=== PATIENT | male | born 1980 | race Two or more races ===

== ENCOUNTER → 2019-12-28 | Emergency (ER) | payer MEDICAID ==
[~2019-12-28] VITALS: Ht 175.3 cm; Wt 93.0 kg
[~2019-12-28] MED LIST: cefTRIAXone SOD 1,000 MG VL IM ONE
[2019-12-28 19:50] VITALS: BP 149/86
[2019-12-28 21:04] LABS: Urine Amorphous Crystal MOD /hpf (None Seen); Urine Bacteria NONE SEEN /hpf (None Seen); Urine Blood Negative /uL (Negative); Urine Specific Gravity 1.027 (1.001-1.035); Urine WBC 2 /hpf (0 - 3)
== END | disposition home or self-care (01) ==
LOC: ER 19:36
DX: N49.2 Inflammatory disorders of scrotum (principal); R59.1 Generalized enlarged lymph nodes
CPT/HCPCS: 76870; 81001; 96372; 99284; J0696

== ENCOUNTER 2020-02-07 22:16 | Emergency (ER) | payer MEDICAID ==
[~2020-02-07] VITALS: Ht 177.8 cm; Wt 93.0 kg
[2020-02-07 22:38] VITALS: BP 130/92
[2020-02-08] MEDS ORDERED: cefTRIAXone SOD 1,000 MG VL IM ONE (00:30)
== END 2020-02-08 00:44 | disposition home or self-care (01) ==
LOC: ER 22:17
DX: L02.411 Cutaneous abscess of right axilla (principal)
CPT/HCPCS: 96372; 99283; J0696

== ENCOUNTER 2020-05-18 16:55 | Emergency (ER) | payer MEDICAID ==
[~2020-05-18] VITALS: Ht 177.8 cm; Wt 95.3 kg
[2020-05-18 17:35] VITALS: BP 134/94
== END 2020-05-18 17:49 | disposition home or self-care (01) ==
LOC: ER 16:55
DX: J32.9 Chronic sinusitis, unspecified (principal); F12.10 Cannabis abuse, uncomplicated

== ENCOUNTER 2021-03-21 15:42 | Emergency (ER) | payer MEDICAID ==
[~2021-03-21] VITALS: Ht 177.8 cm; Wt 95.3 kg
[2021-03-21 19:38] VITALS: BP 141/106
== END 2021-03-21 19:39 | disposition home or self-care (01) ==
LOC: ER 15:44
DX: S83.91XA Sprain of unspecified site of right knee, initial encounter (principal); F12.10 Cannabis abuse, uncomplicated; W01.0XXA Fall on same level from slipping, tripping and stumbling without subsequent striking against object, initial encounter; Y93.55 Activity, bike riding; Y92.488 Other paved roadways as the place of occurrence of the external cause; Y99.8 Other external cause status
CPT/HCPCS: 73562

== ENCOUNTER 2022-02-26 08:06 | Emergency (ER) | payer MEDICAID ==
[~2022-02-26] VITALS: Ht 175.3 cm; Wt 95.3 kg
[2022-02-26 09:26] LABS: Basophils # (auto) 0 10 ^3/uL (0-0.2); Basophils % (auto) 0.5 % (0.0-2.0); Eosinophils # (auto) 0.2 10 ^3/uL (0-0.8); Eosinophils % (auto) 2.3 % (0.0-7.0); Hemoglobin 17.9 g/dL (13.5-17.5); Lymphocytes # (auto) 1.1 10 ^3/uL (0.4-5.4); Lymphocytes % (auto) 14.1 % (10.0-50.0); Mean Corpuscular Hemoglobin 30.2 pg (28.0-32.0); Mean Corpuscular Hgb Conc. 35.1 g/dL (32.0-36.0); Mean Corpuscular Volume 86.1 fL (80.0-100.0); Monocytes # (auto) 0.3 10 ^3/uL (0-1.3); Monocytes % (auto) 3.9 % (0.0-12.0); Neutrophils % (auto) 79.2 % (37.0-80.0); Nucleated Red Blood Cells % 0.1 %; Red Blood Cells 5.93 10^6/uL (4.5-5.90); Red Cell Distribution Width 13.9 % (11.8-14.3); White Blood Cell 7.6 10^3/uL (4.4-10.8)
[2022-02-26 09:40] LABS: Albumin 4.1 g/dL (3.4-5.0); Calcium 9.3 mg/dL (8.5-10.1); Magnesium 2.7 mg/dL (1.6-2.6); Potassium 5.1 mmol/L (3.5-5.1)
[2022-02-26 09:45] LABS: BUN/Creatinine Ratio 10.9; Bilirubin, Total 0.6 mg/dL (0.2-1.0); Total Protein 8.9 g/dL (6.4-8.2)
[2022-02-26 09:52] LABS: Urine Bacteria NONE SEEN /hpf (None Seen); Urine Blood Negative /uL (Negative); Urine Specific Gravity 1.017 (1.001-1.035); Urine WBC <1 /hpf (0 - 3)
[2022-02-26 10:00] VITALS: BP 135/94
[2022-02-26 10:00] LABS: Alcohol, Urine < 3.0 mg/dL (0-10); Amphetamine Screen, Urine NEGATIVE (NEGATIVE); Barbiturate Scree,Urine NEGATIVE (NEGATIVE); Benzodiazephine Screen, Urine NEGATIVE (NEGATIVE); Cannabinoid Screen, Urine POSITIVE (NEGATIVE); Cocaine Screen, Urine NEGATIVE (NEGATIVE); Phencyclidine Screen, Urine NEGATIVE (NEGATIVE)
[2022-02-26 10:06] LABS: Opiate Scree,Urine NEGATIVE (NEGATIVE)
[2022-02-26] MEDS ORDERED: SODIUM CHLORIDE 0.9% 1,000 ML IV ONE (11:15)
[2022-02-26] MEDS ORDERED: FUROSEMIDE 20 MG TAB PO ONE (12:45)
== END 2022-02-26 12:57 | disposition home or self-care (01) ==
LOC: ER 08:06
DX: R55 Syncope and collapse (principal); E87.5 Hyperkalemia; R42 Dizziness and giddiness; R51.9 Headache, unspecified
CPT/HCPCS: 36415; 70450; 72125; 80053; 80307; 80320; 81001; 83735; 84484; 85025; 93005; 96360; 99285; J7030

== ENCOUNTER 2022-03-26 08:49 | Inpatient (IN) | payer MEDICAID ==
[~2022-03-26] VITALS: Ht 177.8 cm; Wt 94.3 kg
[2022-03-26 10:43] LABS: Potassium 3.9 mmol/L (3.5-5.1)
[2022-03-26 10:45] LABS: Basophils # (auto) 0 10 ^3/uL (0-0.2); Basophils % (auto) 0.2 % (0.0-2.0); Eosinophils # (auto) 0 10 ^3/uL (0-0.8); Eosinophils % (auto) 0.2 % (0.0-7.0); Hematocrit 50.8 % (41.0-53.0); Hemoglobin 17.5 g/dL (13.5-17.5); Lymphocytes # (auto) 1.1 10 ^3/uL (0.4-5.4); Lymphocytes % (auto) 6.1 % (10.0-50.0); Mean Corpuscular Hemoglobin 29.7 pg (28.0-32.0); Mean Corpuscular Hgb Conc. 34.4 g/dL (32.0-36.0); Mean Corpuscular Volume 86.3 fL (80.0-100.0); Monocytes # (auto) 1.6 10 ^3/uL (0-1.3); Neutrophils # (auto) 14.7 10 ^3/uL (1.6-8.6); Neutrophils % (auto) 84.5 % (37.0-80.0); Red Blood Cells 5.88 10^6/uL (4.5-5.90); Red Cell Distribution Width 13.8 % (11.8-14.3); White Blood Cell 17.4 10^3/uL (4.4-10.8)
[2022-03-26 10:49] LABS: Albumin 3.8 g/dL (3.4-5.0); BUN/Creatinine Ratio 7.3; Bilirubin, Total 1.1 mg/dL (0.2-1.0); Calcium 9.2 mg/dL (8.5-10.1); Total Protein 8.9 g/dL (6.4-8.2)
[2022-03-26] MEDS ORDERED: SODIUM CHLORIDE 0.9% 500 ML IVB ONE (11:15)
[2022-03-26] MEDS ORDERED: HYDROmorphone HCL 2 MG/ML VL/or syr IV ONE ×2 (11:15→17:00)
[2022-03-26] MEDS ORDERED: METOCLOPRAMIDE HCL 5MG/ml INJ 2ml VIAL IV ONE (11:15)
[2022-03-26] MEDS ORDERED: SODIUM CHLORIDE 0.9% 1,000 ML IV ONE (11:15)
[2022-03-26 11:46] LABS: Magnesium 2.6 mg/dL (1.6-2.6)
[2022-03-26 11:56] LABS: INR 1.05 (0.9-1.15); Partial Thromboplastin Time 30.3 sec (23.6-33.0)
[2022-03-26] MEDS ORDERED: PIPERACILLIN-TAZO 4.5GM 100 ML IV ONE (12:00)
[2022-03-26] MEDS ORDERED: metroNIDAZOLE 500MG/100ML 100 ML IV ONE ×2 (12:00→13:00)
[2022-03-26] MEDS ORDERED: PIPERACILLIN-TAZOB 3.375GM 100 ML IV ONE (13:00)
[2022-03-26] MEDS ORDERED: D5W/SOD CHL 0.45%/KCL 20MEQ 1,000 ML IV ONE (13:00)
[2022-03-26] MEDS ORDERED: LIDOCAINE VISCOUS 2% 15ML UD MT ONE (14:00)
[2022-03-26] MEDS ORDERED: BENZOCAINE (DENTAL) 20 % SPRAY 60ML MT ONE (14:00)
[2022-03-26 16:14] LABS: Urine Bacteria NONE SEEN /hpf (None Seen); Urine Blood TRACE /uL (Negative); Urine Mucus FEW (None Seen); Urine Specific Gravity 1.022 (1.001-1.035); Urine WBC 1 /hpf (0 - 3)
[2022-03-26] MEDS ORDERED: levoFLOXacin 500MG 100 ML IV ONE ×2 (17:30→20:45)
[2022-03-26] MEDS ORDERED: MORPHINE SULFATE INJ 2 MG/ml SYRG IV PRN (17:30)
[2022-03-26] MEDS ORDERED: NITROGLYCERIN 0.4 MG SL TAB SL PRN (17:30)
[2022-03-26] MEDS ORDERED: PROMETHAZINE HCL 25 MG/ML 1ML IV PRN (17:30)
[2022-03-26] MEDS ORDERED: SODIUM CHLORIDE 0.9% 1,000 ML IV SCH (17:30)
[2022-03-26] MEDS ORDERED: CLINDAMYCIN 900MG IV 50 ML IV ONE (17:30)
[2022-03-26] MEDS ORDERED: ONDANSETRON HCL 4 MG/2 ML VIAL IV PRN (17:30)
[2022-03-26] MEDS: MORPHINE SULFATE INJ 2 MG/ml SYRG IV PRN (21:00)
[2022-03-26 23:38] VITALS: BP 144/89
[2022-03-27] MEDS: MORPHINE SULFATE INJ 2 MG/ml SYRG IV PRN ×5 (01:21→22:21)
[2022-03-27 05:00] VITALS: BP 144/92
[2022-03-27] MEDS: CLINDAMYCIN 600MG IV 50 ML IV SCH ×3 (06:08→22:18)
[2022-03-27 06:18] LABS: Basophils # (auto) 0 10 ^3/uL (0-0.2); Basophils % (auto) 0.3 % (0.0-2.0); Eosinophils # (auto) 0.1 10 ^3/uL (0-0.8); Eosinophils % (auto) 0.5 % (0.0-7.0); Hematocrit 46.1 % (41.0-53.0); Hemoglobin 16.5 g/dL (13.5-17.5); Lymphocytes # (auto) 0.8 10 ^3/uL (0.4-5.4); Lymphocytes % (auto) 5.4 % (10.0-50.0); Mean Corpuscular Hemoglobin 31.1 pg (28.0-32.0); Mean Corpuscular Hgb Conc. 35.9 g/dL (32.0-36.0); Mean Corpuscular Volume 86.6 fL (80.0-100.0); Monocytes # (auto) 1.3 10 ^3/uL (0-1.3); Monocytes % (auto) 8.6 % (0.0-12.0); Neutrophils # (auto) 12.7 10 ^3/uL (1.6-8.6); Neutrophils % (auto) 85.2 % (37.0-80.0); Nucleated Red Blood Cells % 0.2 %; Red Blood Cells 5.32 10^6/uL (4.5-5.90); Red Cell Distribution Width 13.9 % (11.8-14.3); White Blood Cell 14.9 10^3/uL (4.4-10.8)
[2022-03-27 06:28] LABS: Albumin 3.3 g/dL (3.4-5.0); BUN/Creatinine Ratio 8.8; Calcium 9.1 mg/dL (8.5-10.1); Potassium 3.8 mmol/L (3.5-5.1)
[2022-03-27 06:31] LABS: Bilirubin, Total 1.1 mg/dL (0.2-1.0); Total Protein 7.8 g/dL (6.4-8.2)
[2022-03-27 08:00] VITALS: BP 140/92
[2022-03-27] MEDS: FAMOTIDINE (10MG/ML) 2ML VL IV SCH (10:12)
[2022-03-27] MEDS: levoFLOXacin 500MG 100 ML IV SCH (10:13)
[2022-03-27 12:00] VITALS: BP 144/99
[2022-03-27] MEDS ORDERED: hydrALAZINE HCL 20 MG/ML VL IV PRN (12:45)
[2022-03-27] MEDS ORDERED: TPN PER PHARMACY 0 ML IV SCH (12:45)
[2022-03-27] MEDS: SODIUM CHLORIDE 0.9% 1,000 ML IV SCH (12:45)
[2022-03-27] MEDS ORDERED: ALBUTEROL SULF 2.5 MG/0.5ML(0.5%) NEB SOLN NEB PRN (12:45)
[2022-03-27] MEDS ORDERED: IPRATROPIUM BROM 0.5 MG/2.5ML INH SOL NEB PRN (12:45)
[2022-03-27] MEDS ORDERED: DEXTROSE (50%) 50ML SYRG IV SCH (13:00)
[2022-03-27 13:09] LABS: Magnesium 2.4 mg/dL (1.6-2.6); Phosphorus 1.9 mg/dL (2.5-4.90)
[2022-03-27 16:00] VITALS: BP 153/91
[2022-03-27] MEDS: InsuLIN REG 1unit/0.01ml Soln (100units/ml) SC SCH (18:00)
[2022-03-27] MEDS: ACCU-CHEK COMFORT CURVE STRIP VI SCH (18:00)
[2022-03-27] MEDS ORDERED: PPN PER PHARMACY IV NR ×6 (20:00)
[2022-03-27 22:15] VITALS: BP 132/71
[2022-03-28] MEDS: ACCU-CHEK COMFORT CURVE STRIP VI SCH ×5 (00:27→23:55)
[2022-03-28] MEDS: SODIUM CHLORIDE 0.9% 1,000 ML IV SCH ×3 (04:22→22:15)
[2022-03-28] MEDS: MORPHINE SULFATE INJ 2 MG/ml SYRG IV PRN ×2 (04:33→22:36)
[2022-03-28 04:49] LABS: Basophils # (auto) 0 10 ^3/uL (0-0.2); Basophils % (auto) 0.4 % (0.0-2.0); Eosinophils # (auto) 0.2 10 ^3/uL (0-0.8); Eosinophils % (auto) 2.1 % (0.0-7.0); Hematocrit 46.2 % (41.0-53.0); Hemoglobin 16.4 g/dL (13.5-17.5); Lymphocytes # (auto) 0.7 10 ^3/uL (0.4-5.4); Mean Corpuscular Hemoglobin 30.5 pg (28.0-32.0); Mean Corpuscular Hgb Conc. 35.4 g/dL (32.0-36.0); Mean Corpuscular Volume 86.3 fL (80.0-100.0); Monocytes # (auto) 0.9 10 ^3/uL (0-1.3); Monocytes % (auto) 9.4 % (0.0-12.0); Neutrophils # (auto) 8.2 10 ^3/uL (1.6-8.6); Neutrophils % (auto) 81.1 % (37.0-80.0); Nucleated Red Blood Cells % 0.1 %; Red Blood Cells 5.36 10^6/uL (4.5-5.90); Red Cell Distribution Width 13.5 % (11.8-14.3); White Blood Cell 10.1 10^3/uL (4.4-10.8)
[2022-03-28 05:01] LABS: Calcium 9.2 mg/dL (8.5-10.1); Magnesium 2.3 mg/dL (1.6-2.6); Potassium 3.6 mmol/L (3.5-5.1)
[2022-03-28 05:05] LABS: BUN/Creatinine Ratio 16.2; Bilirubin, Total 0.9 mg/dL (0.2-1.0); Phosphorus 2.6 mg/dL (2.5-4.90); Total Protein 7.7 g/dL (6.4-8.2)
[2022-03-28 05:31] VITALS: BP 148/90
[2022-03-28] MEDS: InsuLIN REG 1unit/0.01ml Soln (100units/ml) SC SCH ×5 (06:00→23:55)
[2022-03-28] MEDS: CLINDAMYCIN 600MG IV 50 ML IV SCH (06:25)
[2022-03-28 08:00] VITALS: BP 137/93
[2022-03-28] MEDS: levoFLOXacin 500MG 100 ML IV SCH (09:38)
[2022-03-28] MEDS: FAMOTIDINE (10MG/ML) 2ML VL IV SCH (09:39)
[2022-03-28 12:00] VITALS: BP 127/82
[2022-03-28] MEDS ORDERED: OMNIPAQUE ORAL SOLN 500ml 12mg/ml PO ONE (13:31)
[2022-03-28] MEDS: metroNIDAZOLE 500MG/100ML 100 ML IV SCH ×2 (14:00→22:15)
[2022-03-28] MEDS ORDERED: LIDOCAINE 1% (LOCAL ANESTH.) PF 5ml SDV ID ONE (15:45)
[2022-03-28 17:13] VITALS: BP 131/88
[2022-03-28] MEDS ORDERED: IOHEXOL 300 MG/ML 100ML BOTTLE IJ ONE (17:43)
[2022-03-28] MEDS ORDERED: PPN PER PHARMACY IV NR ×7 (20:00)
[2022-03-28] MEDS: SODIUM CHLOR 0.9% PF (SALINE LOCK) 10ML VIAL/SYR IV SCH (21:11)
[2022-03-28 22:00] VITALS: BP 123/77
[2022-03-29 05:00] VITALS: BP 121/71
[2022-03-29 05:50] LABS: Basophils # (auto) 0 10 ^3/uL (0-0.2); Basophils % (auto) 0.3 % (0.0-2.0); Eosinophils # (auto) 0.3 10 ^3/uL (0-0.8); Eosinophils % (auto) 2.6 % (0.0-7.0); Hematocrit 43.5 % (41.0-53.0); Hemoglobin 15.4 g/dL (13.5-17.5); Lymphocytes # (auto) 0.9 10 ^3/uL (0.4-5.4); Lymphocytes % (auto) 8.9 % (10.0-50.0); Mean Corpuscular Hemoglobin 30.8 pg (28.0-32.0); Mean Corpuscular Hgb Conc. 35.4 g/dL (32.0-36.0); Mean Corpuscular Volume 86.9 fL (80.0-100.0); Monocytes % (auto) 10.1 % (0.0-12.0); Neutrophils # (auto) 7.5 10 ^3/uL (1.6-8.6); Neutrophils % (auto) 78.1 % (37.0-80.0); Red Blood Cells 5.01 10^6/uL (4.5-5.90); Red Cell Distribution Width 13.3 % (11.8-14.3); White Blood Cell 9.6 10^3/uL (4.4-10.8)
[2022-03-29 06:00] LABS: Potassium 3.3 mmol/L (3.5-5.1)
[2022-03-29] MEDS: InsuLIN REG 1unit/0.01ml Soln (100units/ml) SC SCH ×3 (06:00→17:41)
[2022-03-29 06:05] LABS: Albumin 2.8 g/dL (3.4-5.0); BUN/Creatinine Ratio 18.9; Bilirubin, Total 0.5 mg/dL (0.2-1.0); Calcium 8.7 mg/dL (8.5-10.1); Magnesium 2.4 mg/dL (1.6-2.6); Phosphorus 3.1 mg/dL (2.5-4.90); Total Protein 7.5 g/dL (6.4-8.2)
[2022-03-29] MEDS: ACCU-CHEK COMFORT CURVE STRIP VI SCH ×3 (06:36→17:41)
[2022-03-29] MEDS: metroNIDAZOLE 500MG/100ML 100 ML IV SCH ×3 (06:36→22:36)
[2022-03-29 09:00] VITALS: BP 117/68
[2022-03-29] MEDS ORDERED: POTASSIUM CHL 20MEQ/100ML 100 ML IV ONE (10:00)
[2022-03-29] MEDS: FAMOTIDINE (10MG/ML) 2ML VL IV SCH (10:03)
[2022-03-29] MEDS: SODIUM CHLOR 0.9% PF (SALINE LOCK) 10ML VIAL/SYR IV SCH ×2 (10:03→22:36)
[2022-03-29] MEDS: levoFLOXacin 500MG 100 ML IV SCH (10:03)
[2022-03-29 13:00] VITALS: BP 112/77
[2022-03-29] MEDS: SODIUM CHLORIDE 0.9% 1,000 ML IV SCH (14:00)
[2022-03-29 17:00] VITALS: BP 110/72
[2022-03-29] MEDS ORDERED: TPN PER PHARMACY IV NR ×10 (20:00)
[2022-03-29 22:00] VITALS: BP 134/86
[2022-03-29] MEDS: MORPHINE SULFATE INJ 2 MG/ml SYRG IV PRN (22:37)
[2022-03-30] MEDS: ACCU-CHEK COMFORT CURVE STRIP VI SCH ×4 (00:27→18:05)
[2022-03-30] MEDS: SODIUM CHLORIDE 0.9% 1,000 ML IV SCH ×2 (02:00→12:20)
[2022-03-30 05:00] VITALS: BP 124/80
[2022-03-30] MEDS: metroNIDAZOLE 500MG/100ML 100 ML IV SCH ×3 (05:28→21:47)
[2022-03-30] MEDS: InsuLIN REG 1unit/0.01ml Soln (100units/ml) SC SCH ×4 (05:29→18:00)
[2022-03-30 09:00] VITALS: BP 130/88
[2022-03-30 09:25] LABS: Potassium 3.8 mmol/L (3.5-5.1)
[2022-03-30 09:31] LABS: Albumin 2.7 g/dL (3.4-5.0); BUN/Creatinine Ratio 15.6; Bilirubin, Total 0.5 mg/dL (0.2-1.0); Calcium 8.6 mg/dL (8.5-10.1); Magnesium 2.2 mg/dL (1.6-2.6); Phosphorus 3.1 mg/dL (2.5-4.90); Total Protein 7.1 g/dL (6.4-8.2)
[2022-03-30] MEDS: SODIUM CHLOR 0.9% PF (SALINE LOCK) 10ML VIAL/SYR IV SCH ×2 (09:47→21:48)
[2022-03-30] MEDS: levoFLOXacin 500MG 100 ML IV SCH (09:47)
[2022-03-30 13:00] VITALS: BP 136/86
[2022-03-30 17:00] VITALS: BP 116/68
[2022-03-30] MEDS ORDERED: TPN PER PHARMACY IV NR ×10 (20:00)
[2022-03-30] MEDS: LORazepam 2MG/ML-1ML VIAL IV PRN (21:47)
[2022-03-30 22:00] VITALS: BP 135/94
[2022-03-30 23:49] VITALS: BP 135/94
[2022-03-31 05:00] VITALS: BP 125/81
[2022-03-31] MEDS: metroNIDAZOLE 500MG/100ML 100 ML IV SCH ×3 (05:52→22:41)
[2022-03-31] MEDS: InsuLIN REG 1unit/0.01ml Soln (100units/ml) SC SCH ×5 (05:53→23:23)
[2022-03-31] MEDS: ACCU-CHEK COMFORT CURVE STRIP VI SCH ×5 (05:54→23:24)
[2022-03-31 09:00] VITALS: BP 122/76
[2022-03-31 09:44] LABS: Calcium 8.7 mg/dL (8.5-10.1); Magnesium 2.7 mg/dL (1.6-2.6); Potassium 3.9 mmol/L (3.5-5.1)
[2022-03-31 09:48] LABS: BUN/Creatinine Ratio 11.1; Bilirubin, Total 0.3 mg/dL (0.2-1.0); Phosphorus 2.8 mg/dL (2.5-4.90); Total Protein 7.5 g/dL (6.4-8.2)
[2022-03-31] MEDS: SODIUM CHLOR 0.9% PF (SALINE LOCK) 10ML VIAL/SYR IV SCH ×2 (10:00→22:29)
[2022-03-31] MEDS: levoFLOXacin 500MG 100 ML IV SCH (10:31)
[2022-03-31] MEDS: SODIUM CHLORIDE 0.9% 1,000 ML IV SCH (10:32)
[2022-03-31 13:00] VITALS: BP 123/83
[2022-03-31 17:04] VITALS: BP 125/79
[2022-03-31] MEDS ORDERED: TPN PER PHARMACY IV NR ×9 (20:00)
[2022-03-31] MEDS: LORazepam 2MG/ML-1ML VIAL IV PRN (22:42)
[2022-03-31 22:57] VITALS: BP 130/85
[2022-04-01] MEDS: SODIUM CHLORIDE 0.9% 1,000 ML IV SCH ×2 (04:00→21:50)
[2022-04-01 05:34] VITALS: BP 122/80
[2022-04-01 05:59] LABS: Basophils # (auto) 0 10 ^3/uL (0-0.2); Basophils % (auto) 0.4 % (0.0-2.0); Eosinophils # (auto) 0.5 10 ^3/uL (0-0.8); Eosinophils % (auto) 4.6 % (0.0-7.0); Hemoglobin 16.4 g/dL (13.5-17.5); Lymphocytes # (auto) 1.1 10 ^3/uL (0.4-5.4); Mean Corpuscular Hemoglobin 29.4 pg (28.0-32.0); Mean Corpuscular Hgb Conc. 34.8 g/dL (32.0-36.0); Mean Corpuscular Volume 84.3 fL (80.0-100.0); Monocytes # (auto) 0.8 10 ^3/uL (0-1.3); Monocytes % (auto) 7.4 % (0.0-12.0); Neutrophils # (auto) 8.6 10 ^3/uL (1.6-8.6); Neutrophils % (auto) 77.6 % (37.0-80.0); Nucleated Red Blood Cells % 0.2 %; Red Blood Cells 5.57 10^6/uL (4.5-5.90); Red Cell Distribution Width 13.4 % (11.8-14.3)
[2022-04-01] MEDS: InsuLIN REG 1unit/0.01ml Soln (100units/ml) SC SCH (06:00)
[2022-04-01] MEDS: ACCU-CHEK COMFORT CURVE STRIP VI SCH (06:00)
[2022-04-01] MEDS: metroNIDAZOLE 500MG/100ML 100 ML IV SCH ×3 (06:05→22:06)
[2022-04-01 06:16] LABS: Albumin 3.1 g/dL (3.4-5.0); Calcium 8.7 mg/dL (8.5-10.1); Potassium 3.6 mmol/L (3.5-5.1)
[2022-04-01 06:20] LABS: BUN/Creatinine Ratio 13.5; Bilirubin, Total 0.3 mg/dL (0.2-1.0); Magnesium 2.4 mg/dL (1.6-2.6); Phosphorus 2.8 mg/dL (2.5-4.90); Total Protein 7.4 g/dL (6.4-8.2)
[2022-04-01 08:52] VITALS: BP 123/83
[2022-04-01] MEDS: SODIUM CHLOR 0.9% PF (SALINE LOCK) 10ML VIAL/SYR IV SCH ×3 (09:29→22:06)
[2022-04-01] MEDS: levoFLOXacin 500MG 100 ML IV SCH (09:29)
[2022-04-01 13:23] VITALS: BP 122/79
[2022-04-01 16:57] VITALS: BP 115/67
[2022-04-01 22:00] VITALS: BP 119/76
[2022-04-02] MEDS: SODIUM CHLORIDE 0.9% 1,000 ML IV SCH
[2022-04-02 05:00] VITALS: BP 122/77
[2022-04-02] MEDS: metroNIDAZOLE 500MG/100ML 100 ML IV SCH ×2 (05:13→14:01)
[2022-04-02 05:57] LABS: Basophils # (auto) 0.1 10 ^3/uL (0-0.2); Eosinophils # (auto) 0.4 10 ^3/uL (0-0.8); Eosinophils % (auto) 4.2 % (0.0-7.0); Lymphocytes # (auto) 1.4 10 ^3/uL (0.4-5.4); Monocytes # (auto) 0.9 10 ^3/uL (0-1.3); Neutrophils # (auto) 7.9 10 ^3/uL (1.6-8.6); White Blood Cell 10.7 10^3/uL (4.4-10.8)
[2022-04-02 06:09] LABS: Calcium 8.9 mg/dL (8.5-10.1)
[2022-04-02 06:11] LABS: BUN/Creatinine Ratio 15.6
[2022-04-02 07:18] LABS: Basophils % (auto) 0.6 % (0.0-2.0); Hematocrit 46.8 % (41.0-53.0); Hemoglobin 16.1 g/dL (13.5-17.5); Lymphocytes % (auto) 13.4 % (10.0-50.0); Mean Corpuscular Hemoglobin 29.6 pg (28.0-32.0); Mean Corpuscular Hgb Conc. 34.5 g/dL (32.0-36.0); Mean Corpuscular Volume 85.9 fL (80.0-100.0); Monocytes % (auto) 8.3 % (0.0-12.0); Neutrophils % (auto) 73.5 % (37.0-80.0); Nucleated Red Blood Cells % 0.2 %; Red Blood Cells 5.45 10^6/uL (4.5-5.90); Red Cell Distribution Width 13.2 % (11.8-14.3)
[2022-04-02 09:00] VITALS: BP 121/75
[2022-04-02] MEDS: levoFLOXacin 500MG 100 ML IV SCH (09:54)
[2022-04-02] MEDS: SODIUM CHLOR 0.9% PF (SALINE LOCK) 10ML VIAL/SYR IV SCH (12:11)
[2022-04-02 13:25] VITALS: BP 120/80
[2022-04-02] MEDS ORDERED: METR500T PO (16:16)
[2022-04-02] MEDS ORDERED: LEVO500T31 PO (16:16)
[2022-04-02 17:13] VITALS: BP 136/89
== END 2022-04-02 16:46 | disposition home or self-care (01) | DRG 720 ==
LOC: ER 08:49 → TELE 17:20 → TELE-EAST 18:50
PROVIDERS: ADMIT Internal Medicine; ATTEND Internal Medicine
PROC: 3E0436Z Introduction of Nutritional Substance into Central Vein, Percutaneous Approach (ICD-10-PCS; principal; 2022-03-27)
DX: A41.9 Sepsis, unspecified organism (principal); K57.20 Diverticulitis of large intestine with perforation and abscess without bleeding; E66.9 Obesity, unspecified; J45.909 Unspecified asthma, uncomplicated; K40.20 Bilateral inguinal hernia, without obstruction or gangrene, not specified as recurrent; K59.01 Slow transit constipation; E87.6 Hypokalemia; F17.210 Nicotine dependence, cigarettes, uncomplicated; Z20.822 Contact with and (suspected) exposure to COVID-19; Z83.3 Family history of diabetes mellitus; Z93.3 Colostomy status; Z71.6 Tobacco abuse counseling; Z68.30 Body mass index [BMI] 30.0-30.9, adult
CPT/HCPCS: 36415; 36569; 71045; 71046; 74176; 74177; 80048; 80053; 80061; 81001; 82962; 83036; 83605; 83690; 83735; 84100; 84443; 85025; 85610; 85730; 87040; 93005; 96361; 96374; 96375; G0378; J1956; J2405; J2543; J3480; J3490

== ENCOUNTER → 2023-04-09 | Emergency (ER) | payer MEDICAID ==
[~2023-04-09] MED LIST changes: +LEVO500T31 PO; +METR500T PO; -cefTRIAXone SOD 1,000 MG VL IM ONE
== END | disposition left against medical advice (07) ==
LOC: ER 20:39
DX: R10.9 Unspecified abdominal pain (principal); R19.7 Diarrhea, unspecified; Z53.21 Procedure and treatment not carried out due to patient leaving prior to being seen by health care provider

== ENCOUNTER 2025-01-13 13:25 | Inpatient (IN) | payer MEDICAID ==
[~2025-01-13] VITALS: Ht 175.3 cm; Wt 91.8 kg
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
--- NOTE | 2025-01-13 14:10 | DVH ---
CT ABDOMEN AND PELVIS WITHOUT CONTRAST CLINICAL HISTORY: pain TECHNIQUE: Multiple contiguous axial images of the abdomen and pelvis without intravenous contrast. T he images were reformatted degenerate coronal and sagittal reconstructions. All CT scans at this medical facility are performed using dose modulation techniques as appropriate t o a performed exam including the following:Automated exposure control was utilized; adjustment of the MA and/or KV according to patient size; and use of iterative reconstruction technique. Radiation Dose Information: CT Dose: CTDI volume is 11 mGy. Dose-length product is 700 mGy*cm Comparison: 03/2022 FINDINGS: Evaluation of the abdomen and pelvis is limited without intravenous contrast. There is fatty infiltration of the liver. The gallbladder, pancreas, kidneys, adrenal glands, and spleen appear within normal limits. There is no gross evidence of abdominal lymphadenopathy. There is no free fluid or free air. The stomach grossly appears unremarkable. The small and large bowel loops demonstrate normal caliber and distribution. There are multiple diverticula in the sigmoid colon. The sigmoid colon demonstrate s irregular wall thickening with moderate surrounding fat stranding compatible with acute diverticuli tis. There is no evidence of pericolonic abscess. There is no significant amount of free air. A norm al appearing appendix is seen in the right lower quadrant abdomen. The abdominal aorta and IVC appear within normal limits. The bladder appears unremarkable for the degree of distention. Pelvic organ appears within normal ramírez its. There is no gross evidence of a pelvic mass. There is no free fluid collection. Lung bases are clear. There is no acute osseous abnormality. IMPRESSION: 1. Findings consistent with acute sigmoid diverticulitis. There is no evidence of pericolonic absces s or significant amount of free air. 2. Hepatic steatosis. HS:Y
[2025-01-13 14:13] LABS: Basophils # (auto) 0 10 ^3/uL (0-0.2); Basophils % (auto) 0.4 % (0.0-2.0); Eosinophils # (auto) 0.2 10 ^3/uL (0-0.8); Eosinophils % (auto) 1.8 % (0.0-7.0); Hemoglobin 16.5 g/dL (13.5-17.5); Lymphocytes # (auto) 1.2 10 ^3/uL (0.4-5.4); Lymphocytes % (auto) 10.1 % (10.0-50.0); Mean Corpuscular Hemoglobin 30.9 pg (28.0-32.0); Mean Corpuscular Hgb Conc. 35.8 g/dL (32.0-36.0); Mean Corpuscular Volume 86.2 fL (80.0-100.0); Monocytes # (auto) 0.9 10 ^3/uL (0-1.3); Monocytes % (auto) 7.5 % (0.0-12.0); Neutrophils # (auto) 9.4 10 ^3/uL (1.6-8.6); Neutrophils % (auto) 80.2 % (37.0-80.0); Platelet Count (auto) 200 10^3/uL (140-450); Red Blood Cells 5.34 10^6/uL (4.5-5.90); Red Cell Distribution Width 14.2 % (11.8-14.3); White Blood Cell 11.7 10^3/uL (4.4-10.8)
[2025-01-13 14:30] LABS: Alanine Aminotransferase 27 U/L (7-40); Albumin 4.5 g/dL (3.2-4.8); Alkaline Phosphatase 159 U/L (46-116); Anion Gap 8 (5-15); Aspartate Aminotransferase 18 U/L (13-40); BUN/Creatinine Ratio 11.6 (10.0-20.0); Bilirubin, Total 0.9 mg/dL (0.2-1.0); Blood Urea Nitrogen 11 mg/dL (9-23); Calcium 9.7 mg/dL (8.7-10.4); Carbon Dioxide 25 mmol/L (20-31); Chloride 107 mmol/L (98-107); Glucose 86 mg/dL (74-106); Potassium 3.8 mmol/L (3.5-5.1); Sodium 140 mmol/L (136-145); Total Protein 7.3 g/dL (5.7-8.2)
[2025-01-13 15:56] LABS: Urine Bacteria None Seen /hpf (None Seen)
[2025-01-13 16:21] LABS: Urine Blood Negative /uL (Negative); Urine Clarity Clear (Clear); Urine Color Light-Yellow (Yellow); Urine Mucus FEW (None Seen); Urine Protein, UAD Negative (Negative); Urine Specific Gravity 1.023 (1.001-1.035); Urine Squamous Epithelial Cell None Seen /hpf (<5); Urine Urobilinogen Normal (Negative); Urine WBC < 1 /HPF (0-3); Urine pH 7.5 (5.0-9.0)
[2025-01-13] MEDS: metroNIDAZOLE 500MG/100ML 100 ML IV ONE (18:15)
[2025-01-13] MEDS: MORPHINE SULFATE 4 MG/ML SYR/VIAL IV ONE (20:43)
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
[2025-01-13 23:05] VITALS: BP 150/91; PULSE 89; RESP 18; TEMP 98.4; O2SAT 97
[2025-01-13] MEDS: cefTRIAXone 1GM/50ML D5W 50 ML IV ONE (23:19)
[2025-01-13] MEDS: metroNIDAZOLE 500MG/100ML 100 ML IV SCH (23:49)
[2025-01-14] MEDS: D5W/SOD CHLO 0.9% 1,000 ML IV ONE (00:47)
[2025-01-14] MEDS: ACETAMINOPHEN 325 MG TAB PO PRN (03:38)
[2025-01-14 05:47] LABS: Basophils # (auto) 0 10 ^3/uL (0-0.2); Basophils % (auto) 0.3 % (0.0-2.0); Eosinophils # (auto) 0.1 10 ^3/uL (0-0.8); Eosinophils % (auto) 0.8 % (0.0-7.0); Hematocrit 44.5 % (41.0-53.0); Hemoglobin 15.7 g/dL (13.5-17.5); Lymphocytes # (auto) 0.6 10 ^3/uL (0.4-5.4); Lymphocytes % (auto) 8.1 % (10.0-50.0); Mean Corpuscular Hemoglobin 30.1 pg (28.0-32.0); Mean Corpuscular Hgb Conc. 35.4 g/dL (32.0-36.0); Monocytes # (auto) 0.6 10 ^3/uL (0-1.3); Monocytes % (auto) 8.3 % (0.0-12.0); Neutrophils # (auto) 6.3 10 ^3/uL (1.6-8.6); Neutrophils % (auto) 82.5 % (37.0-80.0); Nucleated Red Blood Cells % 0.1 %; Platelet Count (auto) 160 10^3/uL (140-450); Red Blood Cells 5.24 10^6/uL (4.5-5.90); Red Cell Distribution Width 14.1 % (11.8-14.3); White Blood Cell 7.6 10^3/uL (4.4-10.8)
[2025-01-14 05:53] LABS: Alanine Aminotransferase 20 U/L (7-40); Anion Gap 8 (5-15); Aspartate Aminotransferase 15 U/L (13-40); BUN/Creatinine Ratio 11.4 (10.0-20.0); Blood Urea Nitrogen 10 mg/dL (9-23); Calcium 9.2 mg/dL (8.7-10.4); Carbon Dioxide 24 mmol/L (20-31); Chloride 105 mmol/L (98-107); Potassium 3.6 mmol/L (3.5-5.1); Sodium 137 mmol/L (136-145); Total Protein 6.9 g/dL (5.7-8.2)
[2025-01-14 05:54] LABS: Albumin 4.2 g/dL (3.2-4.8); Cholesterol 189 mg/dL (< 200); HDL Cholesterol 47 mg/dL (40-59)
[2025-01-14 05:57] LABS: Alkaline Phosphatase 138 U/L (46-116); Glucose 113 mg/dL (74-106); LDL Cholesterol 126 mg/dL (< 100); Triglycerides 162 mg/dL (< 150)
[2025-01-14 06:18] LABS: Lipase 83 U/L (12-53)
[2025-01-14] MEDS ORDERED: ONDANSETRON HCL 4 MG/2 ML VIAL IV PRN (08:00)
[2025-01-14 09:00] VITALS: BP 133/100; PULSE 68; RESP 18; TEMP 98; O2SAT 98
[2025-01-14] MEDS: cefTRIAXone 1GM/50ML D5W 50 ML IV SCH (09:59)
[2025-01-14] MEDS: KETOROLAC TROMETH 30 MG/ML 1ML VIAL IV ONE (10:08)
[2025-01-14] MEDS: PANTOPRAZOLE 40 MG/10 ML VIAL INJ IV SCH (10:16)
--- NOTE | 2025-01-14 10:33 | DVHPNRES ---
Progress Note Date Seen: Jan 14, 2025 Resident Creating Document: LENNIE BOLTON RESIDENT Medical Necessity Reason Pt with a Central, PICC or Fol: No Subjective Review of Systems Patient is a 44-year-old male with past medical history of hypertension and dyslipidemia, who comes in due to abdominal pain. According to the patient, this morning he woke up with an abdominal pain that was localized to the lower abdomen, patient describes the pain as intermittent and sharp in nature, 5/10. Worsens with bending over and improves with lying down. Patient notes he had similar pain 2 years ago and he was diagnosed with acute sigmoid diverticulitis with microperforation. Denies any associated symptoms. Patient's PCP is Dr. Ibarra. This is patient's second episode of diverticulitis. Patient was seen and examined on the bedside. He is alert oriented x3. complains of diffuse abdominal pain and nausea. no other active complaint Constitutional: No: Fever, Chills, Sweats, Weakness, Malaise, Other Eyes: No: Pain, Vision change, Conjunctivae inflammation, Eyelid inflammation, Other, Redness ENT: No: Ear pain, Ear discharge, Nose pain, Nose discharge, Nose congestion, Mouth pain, Mouth swelling, Throat pain, Throat swelling, Other Respiratory: Shortness of breath, improving No: Cough, Dry,Wheezing, Hemoptysis, Pleuritic Pain, Sputum, Wheezing, Other Cardiovascular: No: Chest Pain, Palpitations, Orthopnea, Paroxysmal Noc. Dyspnea, Edema, Lt Headedness, Other Gastrointestinal: Nausea, Vomiting, Abdominal Pain, No Diarrhea, Constipation, Melena, Hematochezia, Other Musculoskeletal: No: other, neck pain, shoulder pain, arm pain, back pain, hand pain, leg pain, foot pain Neurological:; No: Weakness, Numbness, Incoordination, Change in speech, Confusion, Seizures Objective vital signs Vital Sign Date Time Temp Pulse Resp B/P (MAP) Pulse Ox O2 Delivery O2 Flow Rate FiO2 01/14/25 09:00 98.0 68 18 133/100 (111) 98 98.0 01/13/25 23:05 Room Air* 0 21 Total Intake and Output 01/13/25 01/13/25 01/14/25 15:00 23:00 07:00 Intake Total 150 ml Balance 150 ml medications Current Medications Medications Dose Ordered Sig/Apolinar Route Start Time Stop Time Status Last Admin Dose Admin Ceftriaxone Sodium 50 ml @ 100 mls/hr DAILY@09 IV 01/14/25 09:00 01/14/25 09:59 100 MLS/HR Metronidazole 100 ml @ 100 mls/hr Q8HR IV 01/13/25 22:00 01/14/25 06:14 100 MLS/HR Acetaminophen 650 mg Q6HP PRN PO 01/14/25 03:30 01/14/25 03:38 650 MG Pantoprazole Sodium 40 mg DAILY IV 01/14/25 10:00 01/14/25 10:16 40 MG Lactated Ringer's 1,000 ml @ 125 mls/hr Q8H IV 01/14/25 08:00 Ondansetron HCl 4 mg Q8HPRN PRN IV 01/14/25 08:00 Examination Physical examination: General Appearance: Alert, Oriented X3, Cooperative, No acute distress HEENT: Atraumatic, PERRLA, EOMI, Mucous membrane moist/pink Respiratory: Clear to auscultation, Normal air movement Cardiovascular: Regular rate, Normal S1, Normal S2, No murmurs, no chest wall tenderness Abdominal: Normal bowel sounds, Soft, No tenderness, No hepatospenomegaly, No masses Extremities: No clubbing, No cyanosis, No edema, Normal pulses, No tenderness/swelling Skin: No rashes, No breakdown, No significant lesion Neuro: Normal gait, Normal speech, Strength at 5/5 X4 ext, Normal tone, Sensation intact, Cranial nerves 3-12 NL, Reflexes 2+ Psych/Mental Status: Mental status NL, Mood NL laboratory and microbiology Laboratory Tests 01/14/25 05:07 Test 01/14/25 05:07 Range/Units Serum Glucose 113 H 74-106 mg/dL Labs and/or images reviewed: Labs reviewed by me, Image(s) reviewed by me Problem List/Assessment/Plan Problem List/Assessment/Plan Assessment and plan: # Intractable abdominal pain likely due to acute sigmoid diverticulitis # SIRS due to above # Possible acute pancreatitis # Recurrent acute sigmoid diverticulitis - CT abdomen pelvis without contrast demonstrated acute sigmoid diverticulitis, there is no evidence of pericolonic abscess or significant amount of free air and hepatic steatosis - Lipase is 83 - NPO - IV Lactated Ringer's at 125 mL/hours - IV Toradol 15 mg q.6 PRN - IV ondansetron 4 mg Q 8 p.r.n. - IV ceftriaxone 1 g daily and IV metronidazole 500 mg t.i.d. # Uncontrolled hypertension # Dyslipidemia # Grade 1 obesity, BMI 31.4 kg per m2 - Losartan 25 mg p.o. daily - Counseled patient regarding healthy diet, avoid cheese, fatty food, lifestyle modification and moderate intensity physical exercise at least 35 minutes, 5 times in a week # PUD prophylaxis - Protonix 40 mg IV daily # DVT prophylaxis - Not recommended as patient is mobile Goal of care discussed with the patient for more than 20 minutes full code Plan discussed with Dr. Paz Plan discussed with: Patient, Other My Orders My Orders Orders - LENNIE BOLTON Procedure Category Date Status Time Lactated Ringer's PHA 01/14/25 In Process 08:00 Ondansetron Hcl PHA 01/14/25 In Process (Zofran) 08:00 Drug Screen LAB 01/14/25 Logged 10:30 Blood Alcohol LAB 01/14/25 Logged 10:30 Date of Service: Jan 14, 2025 Billing Provider: SAL PAZ MD Common Visit Codes: [id number] INP/OBS CARE(HIGH) LENNIE BOLTON Jan 14, 2025 10:32 SAL PAZ MD Jan 14, 2025 18:38
[2025-01-14] MEDS: LACTATED RINGER'S 1,000 ML IV SCH (10:44)
[2025-01-14] MEDS ORDERED: KETOROLAC TROMETH 30 MG/ML 1ML VIAL IV PRN (11:45)
[2025-01-14] MEDS: LOSARTAN POTASSIUM 25 MG TAB PO ONE (12:45)
[2025-01-14 12:57] VITALS: BP 138/90; PULSE 60; RESP 12; TEMP 97.9; O2SAT 95
[2025-01-14 13:11] LABS: Amphetamine Screen, Urine Neg (NEGATIVE); Barbiturate Scree,Urine Neg (NEGATIVE); Benzodiazephine Screen, Urine Neg (NEGATIVE); Cannabinoid Screen, Urine Pos (NEGATIVE); Cocaine Screen, Urine Neg (NEGATIVE); Opiate Scree,Urine Neg (NEGATIVE); Phencyclidine Screen, Urine Neg (NEGATIVE)
[2025-01-14 16:30] VITALS: PULSE 68; RESP 18; O2SAT 98
[2025-01-14 17:00] VITALS: BP 135/84; PULSE 68; RESP 19; TEMP 96.3; O2SAT 99
[2025-01-14 20:00] VITALS: PULSE 62; RESP 18; O2SAT 98
[2025-01-14 21:00] VITALS: BP 126/81; PULSE 62; RESP 18; TEMP 98.3; O2SAT 98
[2025-01-15 01:00] VITALS: BP 133/81; PULSE 76; RESP 16; TEMP 98.2; O2SAT 97
[2025-01-15 05:00] VITALS: BP 131/74; PULSE 64; RESP 17; TEMP 98.1; O2SAT 95
[2025-01-15 07:44] LABS: Chloride 107 mmol/L (98-107); Potassium 3.6 mmol/L (3.5-5.1); Sodium 138 mmol/L (136-145)
[2025-01-15 07:45] LABS: Anion Gap 8 (5-15); Calcium 9.3 mg/dL (8.7-10.4); Carbon Dioxide 23 mmol/L (20-31)
[2025-01-15 07:49] LABS: Basophils # (auto) 0 10 ^3/uL (0-0.2); Basophils % (auto) 0.5 % (0.0-2.0); Eosinophils # (auto) 0.3 10 ^3/uL (0-0.8); Eosinophils % (auto) 5.6 % (0.0-7.0); Hematocrit 45.3 % (41.0-53.0); Hemoglobin 15.8 g/dL (13.5-17.5); Lymphocytes # (auto) 0.8 10 ^3/uL (0.4-5.4); Lymphocytes % (auto) 15.2 % (10.0-50.0); Mean Corpuscular Hemoglobin 29.6 pg (28.0-32.0); Mean Corpuscular Hgb Conc. 34.8 g/dL (32.0-36.0); Monocytes # (auto) 0.6 10 ^3/uL (0-1.3); Monocytes % (auto) 11.5 % (0.0-12.0); Neutrophils # (auto) 3.4 10 ^3/uL (1.6-8.6); Neutrophils % (auto) 67.2 % (37.0-80.0); Nucleated Red Blood Cells % 0.1 %; Platelet Count (auto) 162 10^3/uL (140-450); Red Blood Cells 5.33 10^6/uL (4.5-5.90); Red Cell Distribution Width 13.6 % (11.8-14.3)
[2025-01-15 07:50] LABS: Glucose 76 mg/dL (74-106)
[2025-01-15 07:51] LABS: BUN/Creatinine Ratio 13.8 (10.0-20.0); Blood Urea Nitrogen 13 mg/dL (9-23)
[2025-01-15 08:00] VITALS: PULSE 74; RESP 18; O2SAT 97
[2025-01-15 08:30] VITALS: BP 129/83; PULSE 74; RESP 18; TEMP 97.8; O2SAT 97
[2025-01-15] MEDS: LOSARTAN POTASSIUM 25 MG TAB PO SCH (10:03)
[2025-01-15] MEDS: ONDANSETRON HCL 4 MG/2 ML VIAL IV ONE (10:13)
[2025-01-15] MEDS ORDERED: METR-344 PO (10:28)
[2025-01-15] MEDS ORDERED: LEVO750T40 PO (10:28)
[2025-01-15] MEDS ORDERED: LOSA-533 PO (10:29)
[2025-01-15] MEDS ORDERED: FAMO20TA10 PO (10:29)
[2025-01-15 10:44] LABS: Hepatitis B Surface Antibody Negative (Negative); Hepatitis C Antibody Negative (Negative)
--- NOTE | 2025-01-15 11:35 | DVHDSRES ---
Discharge Summary Date of Admission Resident Creating Document: LENNIE BOLTON RESIDENT Jan 13, 2025 at 21:55 Date of Discharge: Jan 15, 2025 Admitting Diagnosis Intractable abdominal pain likely due to acute diverticulitis Wounds: No wound was present. Labs/Diagnostic Data: Laboratory Results Test 01/15/25 06:00 01/14/25 05:07 01/13/25 14:00 White Blood Count 5.0 10^3/uL (4.4-10.8) Red Blood Count 5.33 10^6/uL (4.5-5.90) Hemoglobin 15.8 g/dL (13.5-17.5) Hematocrit 45.3 % (41.0-53.0) Mean Corpuscular Volume 85.0 fL (80.0-100.0) Mean Corpuscular Hemoglobin 29.6 pg (28.0-32.0) Mean Corpuscular Hemoglobin Concent 34.8 g/dL (32.0-36.0) Red Cell Distribution Width 13.6 % (11.8-14.3) Platelet Count 162 10^3/uL (140-450) Mean Platelet Volume 8.8 fL (6.9-10.8) Neutrophils (%) (Auto) 67.2 % (37.0-80.0) Lymphocytes (%) (Auto) 15.2 % (10.0-50.0) Monocytes (%) (Auto) 11.5 % (0.0-12.0) Eosinophils (%) (Auto) 5.6 % (0.0-7.0) Basophils (%) (Auto) 0.5 % (0.0-2.0) Neutrophils # (Auto) 3.4 10 ^3/uL (1.6-8.6) Lymphocytes # (Auto) 0.8 10 ^3/uL (0.4-5.4) Monocytes # (Auto) 0.6 10 ^3/uL (0-1.3) Eosinophils # (Auto) 0.3 10 ^3/uL (0-0.8) Basophils # (Auto) 0 10 ^3/uL (0-0.2) Nucleated Red Blood Cells 0.1 % Sodium Level 138 mmol/L (136-145) Potassium Level 3.6 mmol/L (3.5-5.1) Chloride Level 107 mmol/L (98-107) Carbon Dioxide Level 23 mmol/L (20-31) Anion Gap 8 (5-15) Blood Urea Nitrogen 13 mg/dL (9-23) Creatinine 0.94 mg/dL (0.700-1.30) Glomerular Filtration Rate Calc 101 mL/min (>90) BUN/Creatinine Ratio 13.8 (10.0-20.0) Serum Glucose 76 mg/dL (74-106) Calcium Level 9.3 mg/dL (8.7-10.4) Hemoglobin A1c 5.0 % A1C (<5.7) Total Bilirubin 1.0 mg/dL (0.2-1.0) Aspartate Amino Transferase (AST) 15 U/L (13-40) Alanine Aminotransferase (ALT) 20 U/L (7-40) Alkaline Phosphatase 138 U/L (46-116) Total Protein 6.9 g/dL (5.7-8.2) Albumin 4.2 g/dL (3.2-4.8) Triglycerides Level 162 mg/dL (< 150) Cholesterol Level 189 mg/dL (< 200) LDL Cholesterol 126 mg/dL (< 100) HDL Cholesterol 47 mg/dL (40-59) Lipase 83 U/L (12-53) Plasma/Serum Blood Alcohol < 3.0 mg/dL (<10) Hepatitis B Surface Antibody Negative (Negative) Hepatitis C Antibody Negative (Negative) Urine Color Light-yellow (Yellow) Urine Clarity Clear (Clear) Urine pH 7.5 (5.0-9.0) Urine Specific [place] 1.023 (1.001-1.035) Urine Protein Negative (Negative) Urine Ketones Negative (Negative) Urine Blood Negative /uL (Negative) Urine Nitrite Negative (Negative) Urine Bilirubin Negative (Negative) Urine Urobilinogen Normal mg/dL (Negative) Urine Leukocyte Esterase Negative /uL (Negative) Urine RBC 2 /hpf (0 - 3) Urine Microscopic WBC < 1 /HPF (0-3) Urine Squamous Epithelial Cells None seen /hpf (<5) Urine Bacteria None seen /hpf (None Seen) Urine Mucus Few (None Seen) Urine Glucose Normal mg/dL (Normal) Urine Opiates Screen Neg (NEGATIVE) Urine Fentanyl Screen Neg (NEGATIVE) Urine Barbiturates Screen Neg (NEGATIVE) Urine Phencyclidine Screen Neg (NEGATIVE) Urine Amphetamines Screen Neg (NEGATIVE) Urine Benzodiazepines Screen Neg (NEGATIVE) Urine Cocaine Screen Neg (NEGATIVE) Urine Cannabinoids Screen Pos (NEGATIVE) Other Laboratory Tests 01/15/25 06:00 Brief Hx & Hospital Course: Patient is a 44-year-old male with past medical history of hypertension and dyslipidemia, who comes in due to abdominal pain. According to the patient, this morning he woke up with an abdominal pain that was localized to the lower abdomen, patient describes the pain as intermittent and sharp in nature, 5/10. Worsens with bending over and improves with lying down. Patient notes he had similar pain 2 years ago and he was diagnosed with acute sigmoid diverticulitis with microperforation. Denies any associated symptoms. Patient's PCP is Dr. Ibarra. This is patient's second episode of diverticulitis. Hospital course: Initial CT abdomen pelvis without contrast demonstrated acute sigmoid diverticulitis, there is no evidence of pericolonic abscess or significant amount of free air and hepatic steatosis and lipase was mildly elevated 83. The patient was treated with IV lactated Ringer's, IV Toradol, IV ondansetron, IV ceftriaxone 1 g daily and IV metronidazole 500 mg t.i.d. and blood pressure was controlled with losartan 25 mg p.o. daily. Leucocytosis was resolved and patient was able to tolerate oral diet without any abdominal pain and vomiting. Discharge plan was discussed with the patient and all questions were answered. Patient is being discharged to home with levofloxacin 750 mg p.o. daily and metronidazole 500 mg t.i.d. for 8 days, losartan 25 mg daily for 1 month and advised to follow up with [facility] clinic in 1 week and outpatient Gastroenterology in 4-6 weeks for scheduling of elective colonoscopy. Physical examination: General Appearance: Alert, Oriented X3, Cooperative, No acute distress HEENT: Atraumatic, PERRLA, EOMI, Mucous membrane moist/pink Respiratory: Clear to auscultation, Normal air movement Cardiovascular: Regular rate, Normal S1, Normal S2, No murmurs, no chest wall tenderness Abdominal: Normal bowel sounds, Soft, No tenderness, No hepatospenomegaly, No masses Extremities: No clubbing, No cyanosis, No edema, Normal pulses, No tenderness/swelling Skin: No rashes, No breakdown, No significant lesion Neuro: Normal gait, Normal speech, Strength at 5/5 X4 ext, Normal tone, Sensation intact, Cranial nerves 3-12 NL, Reflexes 2+ Psych/Mental Status: Mental status NL, Mood NL Consults/Reason for consult No consultation was done Operations or Procedures CT ABDOMEN AND PELVIS WITHOUT CONTRAST FINDINGS: Evaluation of the abdomen and pelvis is limited without intravenous contrast. There is fatty infiltration of the liver. The gallbladder, pancreas, kidneys, adrenal glands, and spleen appear within normal limits. There is no gross evidence of abdominal lymphadenopathy. There is no free fluid or free air. The stomach grossly appears unremarkable. The small and large bowel loops demonstrate normal caliber and distribution. There are multiple diverticula in the sigmoid colon. The sigmoid colon demonstrates irregular wall thickening with moderate surrounding fat stranding compatible with acute diverticulitis. There is no evidence of pericolonic abscess. There is no significant amount of free air. A normal appearing appendix is seen in the right lower quadrant abdomen. The abdominal aorta and IVC appear within normal limits. The bladder appears unremarkable for the degree of distention. Pelvic organ appears within normal limits. There is no gross evidence of a pelvic mass. There is no free fluid collection. Lung bases are clear. There is no acute osseous abnormality. IMPRESSION: 1. Findings consistent with acute sigmoid diverticulitis. There is no evidence of pericolonic abscess or significant amount of free air. 2. Hepatic steatosis. Condition at Discharge: Stable Final Diagnosis/Problems List # Intractable abdominal pain likely due to acute sigmoid diverticulitis # SIRS due to above # Possible acute pancreatitis # Recurrent acute sigmoid diverticulitis # Uncontrolled hypertension # Dyslipidemia # Grade 1 obesity, BMI 31.4 kg per m2 Discharge Disposition: Home Discharge Instruct/Medications Diet: Regular Diet comment: Full liquid diet for 2 weeks Activity: No Restrictions, As Tolerated Follow Up/Referral: Follow up with [facility] in 1 week Follow up with outpatient GI for scheduling elective colonoscopy in 4 to 6 weeks. Medications: Levofloxacin 750 mg po daily for 8 days. Flagyl 500 mg 8 hrly for 8 days. Losartan 25 mg daily for 1 month. Discharge Statement: "Patient was advised to return to the ER or call 911 if any headaches, dizziness, shortness of breath, chest pain, abdominal pain, bleeding, fevers, or worsening of medical condition. Patient was counseled about treatment plan, medications, possible side effects, patientverbalized understanding. All questions were answered to the best of my ability. This discharge took greater then 30 minutes in planning, reviewing documentation, counseling the patient, and discussing with other team members." ASSESSMENT ASSESSMENT Assessment # Intractable abdominal pain likely due to acute sigmoid diverticulitis # SIRS due to above # Possible acute pancreatitis # Recurrent acute sigmoid diverticulitis # Uncontrolled hypertension # Dyslipidemia # Grade 1 obesity, BMI 31.4 kg per m2 Date of Service: Jan 15, 2025 Billing Provider: SAL MEJIA MD Common Visit Codes: 33475-GTP/OBS DISCH DAY >30min LENNIE BOLTON RESIDENT Jan 15, 2025 11:35 SAL MEJIA MD Jan 15, 2025 17:20
[2025-01-15 12:49] VITALS: BP 129/83
== END 2025-01-15 13:32 | disposition home or self-care (01) | DRG 244 ==
LOC: ER 13:25 → OVERFLOW 21:55 → WEST WING 01-14 16:18
PROVIDERS: ADMIT Internal Medicine; ATTEND Emergency Medicine
DX: K57.32 Diverticulitis of large intestine without perforation or abscess without bleeding (principal); K85.90 Acute pancreatitis without necrosis or infection, unspecified; R65.10 Systemic inflammatory response syndrome (SIRS) of non-infectious origin without acute organ dysfunction; K76.0 Fatty (change of) liver, not elsewhere classified; E66.9 Obesity, unspecified; Z68.31 Body mass index [BMI] 31.0-31.9, adult; I10 Essential (primary) hypertension; E78.5 Hyperlipidemia, unspecified; Y90.0 Blood alcohol level of less than 20 mg/100 ml; F17.210 Nicotine dependence, cigarettes, uncomplicated; F10.90 Alcohol use, unspecified, uncomplicated; F12.90 Cannabis use, unspecified, uncomplicated; Z79.2 Long term (current) use of antibiotics; Z79.899 Other long term (current) drug therapy
CPT/HCPCS: 36415; 74176; 80048; 80053; 80061; 80307; 80320; 81001; 83036; 83690; 85025; 86706; 86803; 96365; 96375; G0378; J1885; J2470; J3490